=== PATIENT | male | born 1950 | race Caucasian/White ===

== ENCOUNTER 2023-10-04 08:39 | Day surgery (SDC) | payer OTHER, SELFPAY ==
[2023-10-04] VITALS (12 sets, daily range): BP systolic 101–125; BP diastolic 50–84; BMI 21.8
[2023-10-04 09:16] LABS: Hematocrit 37.6 % (39.0-52.0); Hemoglobin 12.9 g/dL (13.0-18.0); Mean Corp Hgb Conc. 34.3 g/dL (33.0-37.0); Mean Corpuscular Hgb 30.9 pg (27.0-31.0); Mean Corpuscular Volume 90.2 fL (80.0-94.0); Mean Platelet Volume 10.6 fL (7.4-10.4); Platelet Count 242 10^3/uL (130-400); Red Blood Cell Count 4.17 10^6/uL (4.70-6.10); Red Cell Dist. Width 19.3 % (11.5-14.5); White Blood Cell Count 14.2 10^3/uL (4.8-10.8)
[2023-10-04 09:27] LABS: APTT 25.9 Sec (23.4-35.0); INR 1.05; PT 13.9 Sec (11.4-14.6)
[2023-10-04] MEDS: PERIDEX 0.12% ORAL RINSE 15 ML PO (09:30)
[2023-10-04] MEDS: BACTROBAN NASAL 1 GRAM NASAL (09:31)
[2023-10-04 10:16] LABS: Blood Urea Nitrogen 30 mg/dl (9-20); Calcium 9.5 mg/dl (8.4-10.2); Carbon Dioxide 30 mmol/L (22-30); Chloride 101 mmol/L (98-107); Estimated Creatinine Clearance 76 ml/min; Glucose 80 mg/dl (70-99); Potassium 3.1 mmol/L (3.5-5.1); Sodium 134 mmol/L (135-145); eGFR > 60.00
--- NOTE | 2023-10-04 10:53 | W.SUR.PREOP ---
Pre-Operative Surgical Note
-
I have examined this patient prior to the performance of the scheduled procedure.
The patient's condition is unchanged from the time of the current History and
Physical and the patient is able to undergo the scheduled procedure.
Discussed fully procedure b/l temporal artery biopsies; risk/benefits/alteranatives all discussed. He understands all and wishes to proceed.
--- NOTE | 2023-10-04 12:25 | W.SUR.POST ---
Surgical Immediate Post Op
Note
Pre Op Diagnosis: temporal arteritis
Post Op Diagnosis: same
Procedure Performed: BL temporal artery biopsies
Primary Surgeon: Omkar
Assist: Elvira TORO
Anesthesia: local and sedation
Estimated Blood Loss: 5cc
Fluids: see anesthesia flow sheet
Drains/Shunts: none
Specimens/Cultures: BL temporal arteries
Doppler/Duplex/Angio (Y/N): Y
Complications: none
Operative Findings: successful TAB
--- NOTE | 2023-10-04 17:11 | OR.RPT ---
Operative Report
Operative Report
PROCEDURE DATE: 10/04/2023
Preoperative diagnosis: Temporal arteritis
Postoperative diagnosis: Same
Procedure: Bilateral temporal artery biopsies
Surgeon: Omkar
Produce Wrapper: Elvira
Complications: None
Anesthesia: Local, sedation
Indications for procedure:
Concern for temporal arteritis. Referred by nutrition associate for temporal artery biopsy. Risk/benefits/alternatives of biopsy discussed. Patient understood all wish to proceed.
Description of procedure:
Patient was identified brought to the operating room placed on the table in supine position. After the adequate administration of anesthesia and perioperative antibiotics he was prepped and draped in the standard surgical fashion. A standard
preoperative timeout was undertaken and everybody was in agreement the plan. A longitudinal incision was made in the scalp just anterior and superior to the superiormost aspect of the pinna of the right ear (overlying the palpable pulsation of the
artery) after infiltration of the skin and subcutaneous tissue with 1% lidocaine. This was carried down through the subcutaneous layer and the fascia layer with electrocautery. The superficial temporal artery was identified. It was mobilized
using sharp dissection. It was then ligated proximally and distally as well as a branch ligated all with silk ties and a clip. I then transected the artery. This was then sent for specimen.
A similar incision was made in the left scalp just anterior and superior to the superiormost aspect of the pinna of the left ear (overlying the palpable pulsation of the artery) after infiltration of the skin and subcutaneous tissue with 1%
lidocaine. Similarly this was carried down through the subcutaneous tissue and fascial layer with the electrocautery. The superficial temporal artery was identified and was mobilized using sharp dissection. It was then clipped proximally and
distally as well as a branch clipped. I then transected the artery. This was then sent for specimen.
Both incision sites were then irrigated. Hemostasis was achieved and confirmed. I then closed in layers using 3-0 Vicryl deep dermal layer followed by 4-0 Monocryl subcuticular running layer (this was completed bilaterally). Dermabond was then
applied bilaterally. Patient tolerated procedure well.
== END 2023-10-04 13:40 | disposition home or self-care (01) ==
LOC: CATH 08:39
PROVIDERS: ATTENDING PHYSICIAN Surgery Vascular Surgery; FAMILY PHYSICIAN Family Medicine; OTHER PHYSICIAN Internal Medicine Cardiovascular Disease
DX: M31.6 Other giant cell arteritis (principal)
CPT/HCPCS: 37609; 88305; 80048; 85027; 85610; 85730; 88313; 93005